=== PATIENT | male | born 1995 | race Caucasian/White ===

== ENCOUNTER 2024-10-22 22:12 | Emergency (ER) | payer OTHER ==
[~2024-10-22] VITALS: Ht 182.9 cm; Wt 108.0 kg
[2024-10-23] MEDS ORDERED: Robaxin750 MG PO (00:25)
[2024-10-23 00:30] VITALS: BP 134/77
== END 2024-10-23 00:43 | disposition home or self-care (01) ==
LOC: ER 22:12
DX: S86.912A Strain of unspecified muscle(s) and tendon(s) at lower leg level, left leg, initial encounter (principal); X58.XXXA Exposure to other specified factors, initial encounter
CPT/HCPCS: 73562-LT; 99283-25